=== PATIENT | female | born 1970 | race Caucasian/White ===

== ENCOUNTER 2017-11-12 18:44 | Emergency (ER) | payer MEDICAID ==
[~2017-11-12] VITALS: Ht 152.4 cm; Wt 78.0 kg
[~2017-11-12 18:44] MED LIST: CEPH500C2; METO1TAB26
[2017-11-12 19:38] VITALS: BP 156/98
[2017-11-12] MEDS ORDERED: ACETAMINOPHEN 325MG TABLET PO ONE (23:45)
== END 2017-11-12 23:53 | disposition home or self-care (01) ==
LOC: ER 18:44
DX: R10.9 Unspecified abdominal pain (principal); M79.675 Pain in left toe(s); I10 Essential (primary) hypertension; F17.200 Nicotine dependence, unspecified, uncomplicated; Z90.49 Acquired absence of other specified parts of digestive tract; Z98.890 Other specified postprocedural states
CPT/HCPCS: 73630; 81025; 99284

== ENCOUNTER 2021-09-02 05:08 | Emergency (ER) | payer MEDICAID ==
[~2021-09-02] VITALS: Ht 152.4 cm; Wt 84.5 kg
[2021-09-02 05:14] VITALS: BP 130/85
[2021-09-02] MEDS ORDERED: ACETAMINOPHEN 325MG TABLET PO ONE (06:15)
[2021-09-02] MEDS ORDERED: IBUP-2029 MT (06:59)
[2021-09-02] MEDS ORDERED: CYCL10TA7 MT (06:59)
== END 2021-09-02 07:05 | disposition home or self-care (01) ==
LOC: ER 05:08
DX: M54.16 Radiculopathy, lumbar region (principal); I10 Essential (primary) hypertension; Z98.890 Other specified postprocedural states; Z90.49 Acquired absence of other specified parts of digestive tract
CPT/HCPCS: 73562; 99283

== ENCOUNTER 2023-10-23 15:40 | Emergency (ER) | payer MEDICAID ==
[~2023-10-23] VITALS: Ht 165.1 cm; Wt 91.0 kg
[~2023-10-23 15:40] MED LIST changes: +CYCL10TA21 MT; +IBUP-2029 MT
[2023-10-23 15:58] VITALS: O2SAT 100
[2023-10-23 16:17] LABS: BASOPHILS % 0.2 % (0.0-2.0); EOSINOPHILS % 0.2 % (0.0-5.0); HEMATOCRIT. 46.6 % (36.0-48.0); HEMOGLOBIN. 15.4 g/dL (12.0-16.0); LYMPHOCYTES % 9.5 % (20.0-50.0); MEAN CORPUSCULAR HEMOGLOBIN 28.9 pg (28.0-32.0); MEAN CORPUSCULAR VOLUME 87.6 fL (81.0-99.0); MEAN PLATELET VOLUME 8.7 fl (7.4-10.4); MONOCYTES % 6.2 % (2.0-8.0); NEUTROPHILS % 83.9 % (40.0-76.0); PLATELET 258 x1000/uL (130-400); RED BLOOD CELL COUNT 5.32 mill/uL (4.2-5.4); RED CELL DISTRIBUTION WIDTH 13.5 % (11.6-14.6); WHITE BLOOD COUNT 13.2 x1000/uL (4.5-11.0)
[2023-10-23 16:21] LABS: CHLORIDE 104 mEq/L (98-107); POTASSIUM 3.3 mEq/L (3.5-5.1); SODIUM 134 mEq/L (136-145)
[2023-10-23 16:22] LABS: CALCIUM 9.1 mg/dL (8.7-10.4); CARBON DIOXIDE 24 mEq/L (21-32)
[2023-10-23 16:27] LABS: CREATININE 0.9 mg/dL (0.6-1.0); GLUCOSE 140 mg/dL (70-105)
[2023-10-23 16:29] LABS: ALANINE AMINOTRANSFERASE 26 IU/L (10-49); ALBUMIN 4.6 g/dL (3.2-4.8); ASPARTATE AMINOTRANSFERASE 24 IU/L (<34); BILIRUBIN DIRECT 0.1 mg/dL (<=3.0); BILIRUBIN TOTAL 0.3 mg/dL (0.1-1.0); PROTEIN TOTAL 7.1 g/dL (6.0-8.3)
[2023-10-23 16:33] LABS: UREA NITROGEN BLOOD < 5 mg/dL (9-23)
[2023-10-23 16:45] LABS: CLARITY URINE CLOUDY (CLEAR); COLOR URINE DARK YELLOW (YELLOW); GLUCOSE URINE NEGATIVE (NEGATIVE); KETONES URINE TRACE (NEGATIVE); LEUKOCYTE ESTERASE URINE TRACE (NEGATIVE); NITRITE URINE NEGATIVE (NEGATIVE); OCCULT BLOOD URINE 1+ (NEGATIVE); PH URINE 5.5 (4.5-8.0); PROTEIN URINE 1+ (NEGATIVE); SPECIFIC GRAVITY URINE 1.021 (1.005-1.030)
[2023-10-23 17:00] LABS: BACTERIA URINE NONE SEEN; HYALINE CASTS URINE 0-5 /lpf; SQUAMOUS EPITHELIAL CELL URINE 2+ /lpf (RARE/1+)
[2023-10-23] MEDS: MAGNESIUM/ALUMINUM HYDROXIDE/SIMETHICONE 30ML UDC PO ONE (18:18)
[2023-10-23] MEDS: ACETAMINOPHEN 500MG TABLET PO ONE (18:18)
[2023-10-23 19:29] VITALS: BP 132/87; RESP 18; TEMP 98.4
[2023-10-23] MEDS: ONDANSETRON 4MG ODT PO ONE (19:48)
[2023-10-23 19:55] VITALS: PULSE 81
== END 2023-10-23 20:03 | disposition home or self-care (01) ==
LOC: ER 15:40
DX: K29.70 Gastritis, unspecified, without bleeding (principal); I10 Essential (primary) hypertension; Z90.49 Acquired absence of other specified parts of digestive tract; Z98.890 Other specified postprocedural states
CPT/HCPCS: 99285; 76705; 80076; 80048; 81003; 81025; 83690; 85025; 36415; Q0162

== ENCOUNTER 2024-07-17 01:28 | Emergency (ER) | payer MEDICAID ==
[~2024-07-17] VITALS: Ht 152.4 cm; Wt 89.4 kg
[2024-07-17 01:33] VITALS: O2SAT 99
[2024-07-17] MEDS: ACETAMINOPHEN 325MG TABLET PO ONE (02:06)
[2024-07-17] MEDS: ONDANSETRON HCL 4MG TABLET PO ONE (02:06)
[2024-07-17 02:26] LABS: BASOPHILS % 0.3 % (0.0-2.0); EOSINOPHILS % 2.3 % (0.0-5.0); HEMATOCRIT. 43.2 % (36.0-48.0); HEMOGLOBIN. 14.8 g/dL (12.0-16.0); LYMPHOCYTES % 35.7 % (20.0-50.0); MEAN CORPUSCULAR HEMOGLOBIN 29.6 pg (28.0-32.0); MEAN CORPUSCULAR HGB CONC 34.2 g/dL (31.0-37.0); MEAN CORPUSCULAR VOLUME 86.5 fL (81.0-99.0); MEAN PLATELET VOLUME 8.7 fl (7.4-10.4); MONOCYTES % 10.8 % (2.0-8.0); NEUTROPHILS % 50.9 % (40.0-76.0); PLATELET 240 x1000/uL (130-400); RED CELL DISTRIBUTION WIDTH 13.4 % (11.6-14.6); WHITE BLOOD COUNT 8.6 x1000/uL (4.5-11.0)
[2024-07-17 03:04] LABS: CHLORIDE 106 mEq/L (98-107); POTASSIUM 4.2 mEq/L (3.5-5.1); SODIUM 141 mEq/L (136-145)
[2024-07-17 03:06] LABS: CARBON DIOXIDE 29 mEq/L (21-32)
[2024-07-17 03:07] LABS: CALCIUM 9.6 mg/dL (8.7-10.4)
[2024-07-17 03:11] LABS: CREATININE 0.7 mg/dL (0.6-1.0)
[2024-07-17 03:12] LABS: GLUCOSE 114 mg/dL (70-105); UREA NITROGEN BLOOD 8 mg/dL (9-23)
[2024-07-17 03:13] LABS: ALANINE AMINOTRANSFERASE 25 IU/L (10-49); ALBUMIN 4.5 g/dL (3.2-4.8); ASPARTATE AMINOTRANSFERASE 21 IU/L (<34)
[2024-07-17 03:14] LABS: CLARITY URINE CLEAR (CLEAR); COLOR URINE YELLOW (YELLOW); GLUCOSE URINE NEGATIVE (NEGATIVE); KETONES URINE NEGATIVE (NEGATIVE); LEUKOCYTE ESTERASE URINE NEGATIVE (NEGATIVE); NITRITE URINE NEGATIVE (NEGATIVE); OCCULT BLOOD URINE TRACE (NEGATIVE); PH URINE 6.5 (4.5-8.0); PROTEIN URINE NEGATIVE (NEGATIVE); SPECIFIC GRAVITY URINE 1.004 (1.005-1.030); UROBILINOGEN URINE 0.2 E.U./dL (0.2-1.0)
[2024-07-17 03:14] LABS: BILIRUBIN DIRECT 0.1 mg/dL (<=3.0); BILIRUBIN TOTAL 0.4 mg/dL (0.1-1.0); PROTEIN TOTAL 7.2 g/dL (6.0-8.3)
[2024-07-17] MEDS ORDERED: MAG-55 MT (03:32)
[2024-07-17] MEDS ORDERED: OMEP10CA5 MT (03:32)
[2024-07-17 03:59] VITALS: BP 151/84; PULSE 81; RESP 18; TEMP 36.9; O2SAT 99
[2024-07-17 04:35] LABS: HCG SCREEN NEGATIVE
[2024-07-17 05:16] LABS: RBC URINE 0-2 /hpf (0-2); SQUAMOUS EPITHELIAL CELL URINE 1+ /lpf (RARE/1+); WBC URINE 0-2 /hpf (0-2)
[2024-07-17 05:18] LABS: BACTERIA URINE NONE SEEN
== END 2024-07-17 03:56 | disposition home or self-care (01) ==
LOC: ER 01:28
DX: K29.70 Gastritis, unspecified, without bleeding (principal); I10 Essential (primary) hypertension; M19.90 Unspecified osteoarthritis, unspecified site; Z79.899 Other long term (current) drug therapy; Z90.49 Acquired absence of other specified parts of digestive tract
CPT/HCPCS: 99284; 74176; 80076; 80048; 81003; 81025; 84703; 83690; 85025; 36415; Q0162